=== PATIENT | female | born 1970 | race Caucasian/White ===

== ENCOUNTER 2016-05-07 02:08 | Emergency (ER) | payer MEDICAID ==
[~2016-05-07 02:08] MED LIST: BG MC; CIPRO500 MG PO; COL100 PO; ECO81 PO; FLO4 PO; GLU5 PO; LAC PO; LIPI20 PO; LOP600 PO; METFORMIN HCL1000 MG PO; NOR10T PO; PRI20 PO; PROAIR HFA0.09 MG/A1 INH; ZES5 PO
[2016-05-07 02:50] LABS: CALCIUM 8.4 mg/dL (8.5-10.1); CARBON DIOXIDE 26.4 mmol/L (21-32); CHLORIDE SERUM 101 mmol/L (98-107); CREATININE SERUM 0.5 mg/dL (0.6-1.0); GFR1 > 60 mL/min; GLUCOSE SERUM 180 mg/dL (74-106); POTASSIUM SERUM 3.8 mmol/L (3.5-5.1); SODIUM SERUM 136 mmol/L (136-145)
[2016-05-07 02:56] LABS: ALBUMIN 3.6 g/dL (3.4-5.0); ALKALINE PHOSPHATASE 78 U/L (46-116); ALT/SGPT 27 U/L (14-59); AST/SGOT 18 U/L (15-37); BILIRUBIN TOTAL 0.3 mg/dL (0.20-1.00); TOTAL PROTEIN, SERUM 7.7 g/dL (6.4-8.2)
[2016-05-07 03:00] LABS: RED CELL DISTRIBUTION WIDTH 18.5 % (11.5-14.5)
[2016-05-07 03:03] LABS: SEGMENTED NEUTROPHILS 70 % (37-75)
[2016-05-07 03:04] LABS: CK-MB 2.1 ng/mL (0-3.6); MONOCYTE 4 % (0-7); rbc morphology (normal/abnorm) NORMAL (NORMAL)
[2016-05-07 03:05] LABS: PLATELET MORPHOLOGY PLATELETS INCREASED
[2016-05-07 03:06] LABS: PLATELET COUNT 512 x10^3mcL (130-400)
[2016-05-07 04:04] VITALS: BP 137/76
== END 2016-05-07 04:04 | disposition home or self-care (01) ==
LOC: ED 02:08
PROVIDERS: Emergency Medicine
DX: R53.1 Weakness (principal); E78.00 Pure hypercholesterolemia, unspecified; E11.9 Type 2 diabetes mellitus without complications; I10 Essential (primary) hypertension
CPT/HCPCS: J1885; J3010; Q0162

== ENCOUNTER 2017-01-29 18:07 | Inpatient (IN) | payer MEDICAID ==
[~2017-01-29] VITALS: Ht 162.6 cm; Wt 87.8 kg
[2017-01-29 19:50] LABS: BASOPHIL % 0.2 % (0-2)
[2017-01-29 19:55] LABS: CALCIUM 8.7 mg/dL (8.5-10.1); CHLORIDE SERUM 101 mmol/L (98-107); CREATININE SERUM 0.6 mg/dL (0.6-1.0); GFR1 > 60 mL/min; GLUCOSE SERUM 164 mg/dL (74-106); POTASSIUM SERUM 3.7 mmol/L (3.5-5.1); SODIUM SERUM 137 mmol/L (136-145)
[2017-01-29 19:58] LABS: PLATELET COUNT 464 x10^3mcL (130-400); RED CELL DISTRIBUTION WIDTH 17.4 % (11.5-14.5)
[2017-01-29 20:00] LABS: ALBUMIN 3.8 g/dL (3.4-5.0); ALKALINE PHOSPHATASE 79 U/L (46-116); ALT/SGPT 25 U/L (14-59); AST/SGOT 10 U/L (15-37); BILIRUBIN TOTAL 0.4 mg/dL (0.20-1.00); TOTAL PROTEIN, SERUM 8.3 g/dL (6.4-8.2)
[2017-01-29 23:14] LABS: UA SPECIFIC GRAVITY <=1.005 (1.005-1.035); microscopic required? YES; urine erythrocyte NEGATIVE (NEGATIVE)
[2017-01-29 23:22] LABS: AMPHETAMINE QUAL UR NONE DETECTED (NEG <=1000)
[2017-01-29 23:35] VITALS: BP 135/68
[2017-01-29 23:53] LABS: CHOLESTEROL/HDL RATIO 4.1; PHOSPHOROUS 3.5 mg/dL (2.5-4.9)
[2017-01-30 00:05] LABS: FREE T4 0.92 ng/dL (0.76-1.46); FREE THYROXINE INDEX 2.7 ug/dL (1.4-4.5); T4(THYROXINE) 8.2 ug/dL (4.7-13.3)
[2017-01-30 00:20] LABS: T3 TOTAL 0.82 ng/mL
[2017-01-30 02:39] LABS: TOTAL IRON BINDING CAPACITY 425 ug/dL (250-450)
[2017-01-30 02:42] LABS: IRON 26 ug/dL (50-170)
[2017-01-30 03:27] LABS: RED BLOOD CELLS 4.41 M/mm3 (4.10-5.10)
[2017-01-30 05:20] VITALS: BP 108/53
[2017-01-30 06:21] LABS: CALCIUM 7.8 mg/dL (8.5-10.1); CARBON DIOXIDE 25.7 mmol/L (21-32); CHLORIDE SERUM 104 mmol/L (98-107); CREATININE SERUM 0.5 mg/dL (0.6-1.0); GFR1 > 60 mL/min; GLUCOSE SERUM 184 mg/dL (74-106); MAGNESIUM 2.1 mg/dL (1.8-2.4); PHOSPHOROUS 3.4 mg/dL (2.5-4.9); POTASSIUM SERUM 3.9 mmol/L (3.5-5.1); SODIUM SERUM 138 mmol/L (136-145)
[2017-01-30 08:01] LABS: BASOPHIL % 0.4 % (0-2); PLATELET COUNT 357 x10^3mcL (130-400)
[2017-01-30 08:10] LABS: RED CELL DISTRIBUTION WIDTH 17.7 % (11.5-14.5)
[2017-01-30 09:32] VITALS: BP 132/71
[2017-01-30 14:37] VITALS: BP 12/58; BP 128/58
[2017-01-30 17:15] VITALS: BP 127/71
[2017-01-30 20:21] VITALS: BP 141/70
[2017-01-31 00:32] VITALS: Ht 162.6 cm; Wt 87.8 kg
[2017-01-31 05:08] VITALS: BP 130/70
[2017-01-31 09:01] VITALS: BP 119/69
[2017-01-31 13:32] VITALS: BP 120/56
[2017-01-31] MEDS ORDERED: THERA TABS1 TAB PO (14:52)
[2017-01-31] MEDS ORDERED: FER300 PO (14:53)
[2017-01-31] MEDS ORDERED: PEP20 PO (14:53)
[2017-01-31] MEDS ORDERED: VITC PO (14:53)
[2017-01-31] MEDS ORDERED: GLU10 PO (14:54)
[2017-01-31] MEDS ORDERED: GLU850 PO (14:54)
[2017-01-31] MEDS ORDERED: NEU300 PO (14:55)
[2017-01-31] MEDS ORDERED: COLACE100 MG PO (17:22)
== END 2017-01-31 17:53 | disposition home or self-care (01) | DRG 463 ==
LOC: ED 18:07 → DU 22:29
PROVIDERS: Emergency Medicine; ADMIT Family Medicine
DX: N39.0 Urinary tract infection, site not specified (principal); E11.42 Type 2 diabetes mellitus with diabetic polyneuropathy; D68.69 Other thrombophilia; E11.59 Type 2 diabetes mellitus with other circulatory complications; E11.65 Type 2 diabetes mellitus with hyperglycemia; M94.0 Chondrocostal junction syndrome [Tietze]; K21.9 Gastro-esophageal reflux disease without esophagitis; F41.9 Anxiety disorder, unspecified; D50.9 Iron deficiency anemia, unspecified; E78.5 Hyperlipidemia, unspecified; E66.9 Obesity, unspecified; Z68.33 Body mass index [BMI] 33.0-33.9, adult; Z79.82 Long term (current) use of aspirin; Z79.84 Long term (current) use of oral hypoglycemic drugs
CPT/HCPCS: 82962; 83880; 84439; 90658; J0696; J2250; J2270; J7030; Q0092

== ENCOUNTER 2018-01-24 13:36 | Emergency (ER) | payer MEDICAID ==
[~2018-01-24] VITALS: Ht 165.1 cm; Wt 81.6 kg
[~2018-01-24 13:36] MED LIST changes: +COLACE100 MG PO; +FER300 PO; +GLU10 PO; +GLU850 PO; +NEU300 PO; +PEP20 PO; +THERA TABS1 TAB PO; +VITC PO
[2018-01-24 13:53] VITALS: Ht 165.1 cm; Wt 81.6 kg
[2018-01-24 14:23] LABS: BASOPHIL % 0.6 % (0-2); PLATELET COUNT 270 x10^3mcL (130-400); RED CELL DISTRIBUTION WIDTH 12.6 % (11.5-14.5)
[2018-01-24 14:37] VITALS: BP 134/84
[2018-01-24 14:42] LABS: ALKALINE PHOSPHATASE 101 U/L (46-116); BILIRUBIN TOTAL 0.55 mg/dL (0.20-1.00); CALCIUM 8.8 mg/dL (8.5-10.1); CARBON DIOXIDE 28.6 mmol/L (21-32); CHLORIDE SERUM 91 mmol/L (98-107); CREATININE SERUM 0.8 mg/dL (0.6-1.0); GFR1 > 60 mL/min; POTASSIUM SERUM 4.1 mmol/L (3.5-5.1); SODIUM SERUM 130 mmol/L (136-145); TOTAL PROTEIN, SERUM 8.1 g/dL (6.4-8.2)
[2018-01-24 14:48] LABS: GLUCOSE SERUM 460 mg/dL (74-106)
[2018-01-24 19:07] LABS: ALT/SGPT 30 U/L (14-59); AST/SGOT 29 U/L (15-37)
== END 2018-01-24 14:49 | disposition short-term general hospital (02) ==
LOC: ED 13:36
PROVIDERS: Emergency Medicine
DX: I63.9 Cerebral infarction, unspecified (principal); G51.0 Bell's palsy; E11.65 Type 2 diabetes mellitus with hyperglycemia; I10 Essential (primary) hypertension; E78.00 Pure hypercholesterolemia, unspecified; Z98.890 Other specified postprocedural states
CPT/HCPCS: 82962; J1815